=== PATIENT | female | born 2005 | race Caucasian/White ===

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

== ENCOUNTER 2023-01-23 21:35 | Emergency (ER) | payer MEDICAID, SELFPAY ==
[2023-01-23 21:35] VITALS: PULSE 84
[2023-01-23 21:36] VITALS: BP 131/89; PULSE 107; RESP 16; TEMP 36.6; O2SAT 98; BMI 23.8
--- NOTE | 2023-01-23 22:25 | RAD_ITS ---
INDICATION: INJURY EXAMINATION/TECHNIQUE: X-RAY - RIGHT XR Knee Complete 4 Views or More 4 VIEWS COMPARISON: None. FINDINGS: 4 views of the right knee were obtained. No acute fracture is identified. Possible trace joint effusion. RAD/Knee 4 or More Views IMPRESSION: No acute fracture identified. Electronically Signed: Jorgito Restrepo MD at 23:06 EDT ,
--- NOTE | 2023-01-23 22:25 | RAD_ITS ---
INDICATION: INJURY EXAMINATION/TECHNIQUE: X-RAY - LEFT XR Knee Complete 4 Views or More 4 VIEWS COMPARISON: None. FINDINGS: 4 views of the left knee were obtained. No acute fracture is identified. Possible trace joint effusion. RAD/Knee 4 or More Views IMPRESSION: No acute fracture identified. Electronically Signed: Jorgito Restrepo MD at 23:11 EDT ,
[2023-01-23 23:20] VITALS: PULSE 89; RESP 15; O2SAT 98
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
== END 2023-01-23 23:27 | disposition home or self-care (01) ==
PROVIDERS: Emergency Provider Emergency Medicine; PCP Nurse Practitioner Family; Visit Provider Emergency Medicine
DX: S80.02XA Contusion of left knee, initial encounter (principal); S80.01XA Contusion of right knee, initial encounter; V89.0XXA Person injured in unspecified motor-vehicle accident, nontraffic, initial encounter; Z79.3 Long term (current) use of hormonal contraceptives
CPT/HCPCS: 73564; 99282

== ENCOUNTER 2023-02-15 00:36 | Emergency (ER) | payer MEDICAID, SELFPAY ==
[2023-02-15 00:37] VITALS: BP 125/86; PULSE 95; RESP 16; TEMP 35.7; O2SAT 99; BMI 24.5
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
== END 2023-02-15 00:58 | disposition home or self-care (01) ==
PROVIDERS: Emergency Provider Emergency Medicine; PCP Nurse Practitioner Family; Visit Provider Emergency Medicine
DX: M25.561 Pain in right knee (principal); V89.2XXA Person injured in unspecified motor-vehicle accident, traffic, initial encounter
CPT/HCPCS: 99282

== ENCOUNTER 2023-03-27 23:54 | Emergency (ER) | payer MEDICAID, SELFPAY ==
[2023-03-27 23:55] VITALS: BP 112/82; PULSE 89; RESP 18; TEMP 36.9; O2SAT 98; BMI 24.4
--- NOTE | 2023-03-28 00:08 | EDS_ITS ---
HPI HPI - Female History of Present Illness Chief Complaint: Female C/O Narrative Narrative: Patient presents with pelvic pain. She is on Depo-Provera and had it about a month and a half or 2 ago, she started bleeding and having abdominal pain. She was seen at an outside ED had unremarkable urinalysis and blood work and was discharged. Her bleeding has now significantly decreased almost stopped but she still has cramping. She has no fevers or chills. She has no back pain. She is denying any upper abdominal pain. The pain is consistent with prior pelvic cramps. She is also complaining of pain in her left bicep, she recently started working out. Other trauma. PFSH PFSH Medical History Anxiety Depression Migraines Non-smoker Home Medications medroxyprogesterone 150 mg/mL intramuscular suspension (Depo-Provera) 150 mg IM [id number] #1 mL 10/18/22 [Rx Last Taken Unknown] naproxen 500 mg tablet (Naprosyn) 500 mg PO BID PRN pain #20 tabs 03/28/23 [Rx Last Taken Unknown] ondansetron 4 mg disintegrating tablet 4 mg PO Q8H PRN PRN Nausea #10 tabs 03/28/23 [Rx Last Taken Unknown] Allergy/AdvReac Type Severity Reaction Status Date / Time No Known Allergies Allergy Verified 03/27/23 23:55 Social History Smoking Status: Never smoker alcohol intake: never substance use type: does not use caffeine: Yes Type: coffee ROS ROS ED ROS Narrative Past medical history: Reviewed Medications: Reviewed Social history: Noncontributory Review of systems: General: No fever Eyes: No visual changes ENT: No upper airway congestion, normal voice Neck: No neck pain Cardiovascular: No chest pain Respiratory: No shortness of breath or cough Gastrointestinal: As in HPI Genitourinary: As in HPI Musculoskeletal: Left bicep tenderness. She has a negative x-ray at the outside facility Skin: No rash Neurological: No memory loss, confusion or any focal weakness EXAM Physical Exam Narrative Exam Narrative: Physical exam General: Patient does not appear ill although she does appear uncomfortable. Head: Normocephalic, Atraumatic Eyes: Conjunctiva not pale ENT: Moist mucous membranes Neck: Supple, Nontender, No lymphadenopathy Cardiovascular: Regular rate, Regular rhythm Respiratory: No distress, CTA bilaterally Abdomen: Soft, some suprapubic pain. Back: Nontender, Normal Inspection. Negative for: CVA tenderness Extremities: Left arm has tenderness over the bicep tendon distally. No bony tenderness with full range of motion of the elbow. Skin: Normal color, No rash Neurological: Alert, Normal Strength, Normal Sensation Const Vital Signs: 03/27/23 23:55 Temperature 98.4 F Temperature Source Temporal Pulse Rate 89 Respiratory Rate 18 Blood Pressure 112/82 H Blood Pressure Mean 92 Pulse Ox 98 Oxygen Delivery Method Room Air MDM MDM MDM Narrative Medical decision making narrative: Patient had a normal work-up at the outside facility. I am not worried about or infection therefore I will not redo any of the blood work. I do not believe she meets criteria for an emergent ultrasound. She has heavy menstrual cramps likely secondary from rebound from Depo-Provera. She otherwise appears well. She does have some pain in her bicep tendon but I do not believe new x-rays needed since she just had an x-ray outpatient. She will be treated with analgesics in the ED. I will give her nausea medications and anti- inflammatories for home otherwise she will be discharged in stable condition. I discussed with her friend in the room who also provided history. Discharge Plan Triage Chief Complaint: Female C/O ED Provider: Juan Antonio Gamino Dx/Rx/DC Orders Clinical Impression: Pelvic pain, Abnormal vaginal bleeding, PCOS (polycystic ovarian syndrome) Instructions: Understanding Uterine Bleeding, Communicating About Pain Prescriptions: New ondansetron 4 mg tablet,disintegrating 4 mg PO Q8H PRN PRN (Reason: Nausea) Qty: 10 0RF naproxen [Naprosyn] 500 mg tablet 500 mg PO BID PRN (Reason: pain) Qty: 20 0RF No Action medroxyprogesterone [Depo-Provera] 150 mg/mL suspension 150 mg IM [id number] Qty: 1 4RF Primary Care Provider: Rhonda Del Rio NP Referrals: Rhonda Del Rio NP, [employer] DEVELOPER-[employer] [Primary Care Provider] - 3-5 Days Disposition Disposition: Home, Self Care
[2023-03-28 00:16] VITALS: PULSE 78; RESP 15; O2SAT 99
[2023-03-28] MEDS: HYDROmorphone 1 MG/ML Syringe SC (00:30)
[2023-03-28] MEDS: Ondansetron ODT 4 MG Tablet PO (00:30)
[2023-03-28] MEDS: Ketorolac 30 MG/ML Syringe IM (00:30)
== END 2023-03-28 00:47 | disposition home or self-care (01) ==
PROVIDERS: Emergency Provider Emergency Medicine; PCP Nurse Practitioner Family; Visit Provider Emergency Medicine
DX: N93.9 Abnormal uterine and vaginal bleeding, unspecified (principal); E28.2 Polycystic ovarian syndrome; Z79.3 Long term (current) use of hormonal contraceptives; R10.2 Pelvic and perineal pain
CPT/HCPCS: 96372; 99283

== ENCOUNTER 2023-11-07 02:26 | Emergency (ER) | payer OTHER, SELFPAY ==
[2023-11-07 02:28] VITALS: BP 122/89; PULSE 59; RESP 16; TEMP 36; O2SAT 98; BMI 18.8
--- NOTE | 2023-11-07 02:59 | ED.VIS.GI ---
HPI HPI - GI History of Present Illness Chief Complaint: Nausea/Vomiting Informant: patient Nausea/Vomiting/Emesis GI Symptom: Positive for Nausea and Vomiting Onset: Hours (5) Quality: Positive for Nonbilious; Negative for Blood streaks, Coffee ground or Hematemesis Severity: Severe Diarrhea/Melena/Hematochezia GI Symptom: Negative for Diarrhea, Melena or Hematochezia Associated Symptoms Associated Symptoms: Negative for Dysuria, Frequency or Hematuria Narrative Narrative: Patient presents with nausea and vomiting that has gotten worse over the last 5 hours. Patient states it came on rather suddenly. Patient states she is vomiting up stomach contents. Patient denies any hematemesis or coffee-ground emesis. Patient denies any abdominal pain. Patient denies any diarrhea, melena, or hematochezia. Patient denies any dysuria, frequency, or hematuria. Patient admits to some subjective chills. Patient states she does have some pain into her back. Patient states she has some burning pain up into her chest. Patient states she also feels like her heart is racing at times. PFSH PFSH Medical History Anxiety Depression Migraines Non-smoker Home Medications medroxyprogesterone 150 mg/mL intramuscular suspension (Depo-Provera) 150 mg IM [id number] #1 mL 10/18/22 [Rx Last Taken Unknown] naproxen 500 mg tablet (Naprosyn) 500 mg PO BID PRN pain #20 tabs 03/28/23 [Rx Last Taken Unknown] cetirizine 10 mg capsule (All Day Allergy (cetirizine)) 10 mg PO DAILY PRN 03/31/23 [History Last Taken Unknown] fluoxetine 20 mg capsule 20 mg PO DAILY 06/29/23 [History Last Taken Unknown] etonogestrel 0.12 mg-ethinyl estradiol 0.015 mg/24 hr vaginal ring (NuvaRing) 1 vag ring vaginal Q4W #3 ea 09/29/23 [Rx Last Taken Unknown] promethazine 25 mg rectal suppository (Promethegan) 25 mg RECTAL Q6H PRN PRN Nausea ##6 11/07/23 [Rx Last Taken Unknown] Allergy/AdvReac Type Severity Reaction Status Date / Time No Known Allergies Allergy Verified 09/29/23 10:07 Surgical History no surgical history no surgical history Social History household members: friend(s) housing: apartment current occupational status: employed current occupation: [employer] in [employer] Smoking Status: Never smoker alcohol intake: never substance use type: does not use caffeine: Yes Type: coffee seatbelt use: always do you feel safe at home: Yes additional social history: Single ROS ROS ED Constitutional Constitutional ED: Reports chills and subjective; Denies fever(s) Eyes Eyes: Denies blurry vision or change in vision ENT ENT ED: Denies rhinorrhea or sore throat Cardiovascular Cardiovascular: Reports chest pain, palpitations and racing heartbeat Respiratory/Chest Respiratory/Chest: Reports cough and dyspnea Gastrointestinal Gastrointestinal: Reports nausea and vomiting; Denies abdominal pain, diarrhea or melena Genitourinary Genitourinary ED: Denies dysuria or hematuria Musculoskeletal Musculoskeletal: Reports back pain; Denies neck pain Integumentary Denies abscess or rash Neurologic Neurologic: Denies headache(s) or weakness Allergic/Immunologic Allergic/Immunologic ED: Denies mouth swelling or urticaria EXAM Physical Exam Const Vital Signs: 11/07/23 02:28 Temperature 96.8 F L Temperature Source Temporal Pulse Rate 59 L Respiratory Rate 16 Blood Pressure 122/89 H Blood Pressure Mean 100 Pulse Ox 98 Oxygen Delivery Method Room Air Positive well nourished and well developed General Appearance ED: well developed and NAD HEENT Reports moist mucous membranes Neck supple and no JVD Resp normal respiratory effort and clear to auscultation bilaterally Cardio regular rate and regular rhythm GI non-distended Palpation: soft and tender epigastric, LLQ, RLQ, LUQ, RUQ, periumbilical and suprapubic; Negative for guarding or rebound tenderness present Extremity full ROM Neuro CN's II-XII intact bilaterally, moves all extremities and no sensory deficits noted Sensorium / Orientation: alert Motor Exam: strength 5/5 throughout Psych mental status grossly normal MDM MDM MDM Narrative Medical decision making narrative: Differential diagnosis includes gastroenteritis, anxiety, viral illness, peptic ulcer disease, pancreatitis, , and dehydration. CBC will be obtained to assess for leukocytosis and anemia. Comprehensive metabolic profile will be obtained to assess for hepatic function, renal function, and electrolyte abnormality. Lipase will be obtained to assess for pancreatitis. Urinalysis will be obtained to assess for urinary tract infection. Serum hCG will be obtained to assess for . Lab Data Attestation: I reviewed the patient's lab results. Lab results narrative: CBC was reviewed. There is a slight leukocytosis of 12.6. The remainder is within normal limits. Comprehensive metabolic profile was reviewed and was within normal limits. Lipase was reviewed and was normal. Serum hCG was reviewed and was negative. Urinalysis was reviewed. There is no evidence of urinary tract infection or hematuria. Labs: Laboratory Results - last 24 hr 11/07/23 11/07/23 03:06 04:44 WBC 12.6 H RBC 4.77 Hgb 14.8 Hct 43.1 MCV 90.4 MCH 31.0 MCHC 34.3 RDW Std Deviation 39.5 RDW Coeff of Jelly 11.9 Plt Count 392 MPV 10.7 Immature Gran % (Auto) 0.300 Neut % (Auto) 82.6 H Lymph % (Auto) 14.1 L [place] % (Auto) 2.7 Eos % (Auto) 0.0 Baso % (Auto) 0.3 Absolute Neuts (auto) 10.4 H Absolute Lymphs (auto) 1.77 Nucleated RBC % 0 Sodium 138 Potassium 3.5 Chloride 107 Carbon Dioxide 19.0 L Anion Gap 12 BUN 6 L Creatinine 0.87 Estim Creat Clear Calc 92.28 Est GFR (MDRD) Af Amer 106 Est GFR (MDRD) Non-Af 88 BUN/Creatinine Ratio 6.9 L Glucose 115 H Calcium 9.7 Total Bilirubin 1.10 H AST 16 ALT 17 Alkaline Phosphatase 59 Total Protein 8.3 H Albumin 4.2 Globulin 4.1 Albumin/Globulin Ratio 1.0 Lipase 15 Serum , Qual NEGATIVE Urine Color Yellow Urine Clarity Clear Urine pH 6.0 Ur Specific [place] 1.025 Urine Protein 30 H Urine Glucose (UA) Normal Urine Ketones 50 H Urine Occult Blood 50 H Urine Nitrite Negative Urine Bilirubin Negative Urine Urobilinogen Normal Ur Leukocyte Esterase 25 H Urine RBC 0 SEEN Urine WBC 0-5 SEEN Ur Squamous Epith Cells 0-5 SEEN Urine Bacteria 1+ Urine Mucus 2+ Treatment and Re-Evaluation :: Patient was given IV fluids and Zofran. Patient was feeling better on reevaluation. Patient was advised of her findings. Patient was given a prescription for Zofran. Patient was instructed to start with small amounts of fluids more frequently and advance her diet as tolerated. Patient was instructed to follow-up with her primary care physician in 3 to 5 days for reevaluation. Patient understood and was agreeable with the plan. All questions were answered. Discharge Plan Triage Chief Complaint: Nausea/Vomiting ED Provider: Kaden Bermudez Dx/Rx/DC Orders Clinical Impression: Nausea and vomiting Instructions: ED Vomiting (Adult) Prescriptions: New promethazine [Promethegan] 25 mg suppository 25 mg RECTAL Q6H PRN PRN (Reason: Nausea) Qty: 6 0RF No Action medroxyprogesterone [Depo-Provera] 150 mg/mL suspension 150 mg IM [id number] Qty: 1 4RF All Day Allergy (cetirizine) 10 mg capsule 10 mg PO DAILY PRN fluoxetine 20 mg capsule 20 mg PO DAILY etonogestrel-ethinyl estradiol [NuvaRing] 0.12-0.015 mg/24 hr ring 1 vag ring vaginal Q4W Qty: 3 5RF Rx Instructions: continuous cycle leave in place for 3 weeks of a 3 week cycle naproxen [Naprosyn] 500 mg tablet 500 mg PO BID PRN (Reason: pain) Qty: 20 0RF Primary Care Provider: Rhonda Del Rio NP Referrals: Rhonda Del Rio NP, TECHNICIAN [employer]ATED [employer]QUIPMENT-[employer] [Primary Care Provider] - 3-5 Days Disposition Disposition: Home, Self Care
[2023-11-07 03:51] LABS: Absolute Lymphocyte Count 1.77 X10^3/uL (0.83-4.51); Absolute Neutrophil Count 10.4 X10^3/uL (2.0-7.7); Basophil# 0.04 X10^3/uL; Basophil% 0.3 % (0-1); Hematocrit 43.1 % (37-47); Hemoglobin 14.8 g/dL (12.0-15.0); Lymphocyte # 1.77 X10^3/ul (0.83-4.51); Lymphocyte % 14.1 % (19-41); Mean Corp Hgb Conc 34.3 g/dL (32-36); Mean Corpuscular Volume 90.4 fL (81-99); Mean Platelet Vol. 10.7 fl (6.2-12.0); Monocyte# 0.34 X10^3/uL; Monocyte% 2.7 % (0-10); NRBC Flagged by Analyzer 0 % (0-5); Neutrophil % 82.6 % (47-70); Platelet Count 392 K/mm3 (150-450); RBC Distribution Width CV 11.9 % (11.6-14.6); RBC Distribution Width SD 39.5 fl (35.1-43.9); Red Blood Count 4.77 M/mm3 (4.2-5.4); White Blood Count 12.6 K/mm3 (4.4-11.0)
[2023-11-07] MEDS: 0.9% Normal Saline (1000mL) 1,000 ML 1000 ML IV (03:52)
[2023-11-07] MEDS: Ondansetron 4 MG/2 ML Vial IV (03:53)
[2023-11-07 04:05] LABS: Internal QC Validated? YES +Cl - CLEAR BKGD; Pregnancy, Serum, hCG Quali. NEGATIVE Negative
[2023-11-07 04:12] LABS: AST(SGOT) 16 U/L (15-37); Alanine Aminotransfer ALT/SGPT 17 U/L (13-56); Albumin, Serum 4.2 g/dL (3.2-5.0); Alkaline Phosphatase 59 U/L (45-117); Anion Gap 12 (5-15); BUN 6 mg/dL (7-18); BUN/Creat Ratio 6.9 RATIO (10-20); Calcium,Total 9.7 mg/dL (8.5-10.1); Chloride 107 mmol/L (98-107); Creatinine, Serum 0.87 mg/dL (0.55-1.02); EST Glomerular Filtration Rate 88 mL/min (>60); Est Glom Filt Rate - Afr Amer 106 mL/min (>60); Estimated Creatinine Clearance 92.28 ml/min; Globulin 4.1 g/dL (2.2-4.2); Glucose 115 mg/dL (74-106); Lipase 15 U/L (13-75); Potassium 3.5 mmol/L (3.5-5.1); Protein, Total 8.3 g/dL (6.4-8.2); Sodium Level 138 mmol/L (136-145)
[2023-11-07 04:50] LABS: Red Blood Cells-Urine 0 SEEN /hpf (0-5)
[2023-11-07 04:51] LABS: Color, Urine Yellow (Yellow); Glucose, Dipstick Normal (Normal); Ketone-Dipstick 50 mg/dl (Negative); Leukocyte Esterase-Dipstick 25 /ul (Negative); Nitrite-Dipstick Negative (Negative); Occult Blood-Urine 50 /ul (Negative); Protein-Dipstick 30 mg/dl (Negative); Specific Gravity, Urine 1.025 (1.002-1.030); Urine Bilirubin Dipstick Negative (Negative); Urine Clarity Clear (Clear); Urine Urobilinogen Normal (Normal)
[2023-11-07 05:32] LABS: Bacteria 1+ /hpf (None Seen); Mucous, Urine 2+ /hpf (<or=2+); Squamous Epithelial Cells - UA 0-5 SEEN /hpf (5-10); White Blood Cells 0-5 SEEN /hpf (0-5)
[2023-11-07] MEDS: proMETHazine 25 MG/ML Syringe 6.25 MG IM (05:57)
[2023-11-07 07:24] VITALS: BP 127/68; PULSE 77; RESP 18; TEMP 36.6; O2SAT 98
== END 2023-11-07 07:25 | disposition home or self-care (01) ==
PROVIDERS: Emergency Provider Emergency Medicine; PCP Nurse Practitioner Family; Visit Provider Emergency Medicine
DX: R11.2 Nausea with vomiting, unspecified (principal); F32.A Depression, unspecified; Z79.899 Other long term (current) drug therapy
CPT/HCPCS: 80053; 81001; 83690; 84703; 85025; 96361; 96372; 96374; 99283; J2405

== ENCOUNTER 2024-10-04 12:56 | Emergency (ER) | payer OTHER, SELFPAY ==
[2024-10-04 12:57] VITALS: BP 129/90; PULSE 73; RESP 15; TEMP 36; O2SAT 100; BMI 17.4
--- NOTE | 2024-10-04 14:09 | EDS_ITS ---
HPI HPI - GI History of Present Illness Chief Complaint: Nausea/Vomiting Informant: patient and friend Narrative Narrative: 18-year-old female started becoming sick last night a little over 12 hours ago, started with periumbilical abdominal ache, shortly thereafter followed by nausea and vomiting, and then that is continued this morning along with 4 episodes of watery nonbloody diarrhea. No fevers or chills. Recent sick contacts with similar. No history of prior abdominal surgeries. No problems urinating. Cramping and aching periumbilical improves for a very short period of time after she has vomiting or diarrhea. She states now that she has been having all of this vomiting and diarrhea her chest feels sore and hurts to take of breath, but it is diffuse. PFSH PFSH Medical History Depression Anxiety Migraines Non-smoker Home Medications ?Medication ?Instructions ?Recorded ?Last Taken ?Type medroxyprogesterone 150 mg/mL 150 mg IM [id number] #1 mL 10/18/22 Unknown Rx intramuscular suspension (Depo-Provera) naproxen 500 mg tablet (Naprosyn) 500 mg PO BID PRN pa in #20 tabs 03/28/23 Unknown Rx cetirizine 10 mg capsule (All Day 10 mg PO DAILY PRN 0 03/31/23 Unknown History Allergy (cetirizine)) fluoxetine 20 mg capsule 20 mg PO DAILY 06/29/23 Unkn own History etonogestrel 0.12 mg-ethinyl 1 vag ring vaginal Q4W #3 ea 09/29/23 Unknown Rx estradiol 0.015 mg/24 hr vaginal ring (NuvaRing) promethazine 25 mg rectal 25 mg RECTAL Q6H PRN PRN Keshawn sea ##6 11/07/23 Unknown Rx suppository (Promethegan) dicyclomine 10 mg capsule 20 mg (2 x 10 mg) PO Q6H PRN 10/04/24 Unknown Rx Abdominal Discomfort #20 CAPSULES ondansetron 8 mg disintegrating 8 mg PO Q8H PRN nausea and 10/04/24 Unknown Rx tablet vomiting #15 tabs Allergy/AdvReac Type Severity Reaction Status Date / Time No Known Allergies Allergy Verified 10/04/24 12:59 Social History household members: friend(s) housing: apartment current occupational status: employed current occupation: [employer] Smoking Status: Never smoker alcohol intake: never substance use type: does not use caffeine: Yes Type: coffee seatbelt use: always do you feel safe at home: Yes additional social history: Single ROS ROS ED Constitutional Constitutional ED: Reports malaise; Denies chills or fever(s) Eyes Eyes: Denies change in vision or diplopia ENT ENT ED: Denies rhinorrhea or sore throat Cardiovascular Cardiovascular: Reports chest pain; Denies palpitations Respiratory/Chest Respiratory/Chest: Denies cough or dyspnea Gastrointestinal Gastrointestinal: Reports abdominal pain, diarrhea, nausea and vomiting; Denies hematemesis, hematochezia or melena Genitourinary Genitourinary ED: Denies dysuria or hematuria Musculoskeletal Musculoskeletal: Denies back pain or neck pain Integumentary Denies abscess or rash Neurologic Neurologic: Denies headache(s), paresthesias or weakness EXAM Physical Exam Const Vital Signs: 10/04/24 12:57 10/04/24 14:56 10/04/24 16:00 Temperature 96.8 F L Temperature Source Temporal Pulse Rate 73 88 70 Respiratory Rate 15 14 14 Blood Pressure 129/90 H 120/74 118/70 Blood Pressure Mean 103 89 86 Pulse Ox 100 100 100 Oxygen Delivery Method Room Air Positive well nourished and well developed General Appearance ED: well developed and NAD HEENT Reports moist mucous membranes normocephalic and atraumatic Eyes PERRL and EOMs intact bilaterally Neck full ROM and supple Resp normal respiratory effort and clear to auscultation bilaterally Cardio regular rate, regular rhythm and no murmurs GI non-distended GI Narrative: Diffuse abdominal tenderness without guarding, rebound, distention Auscultation: normoactive bowel sounds and hyperactive bowel sounds Palpation: soft Back/Spine no CVA tenderness General Back: other FROM Extremity normal to inspection General Extremety ED: Negative for edema, pulses abnormal or tenderness General Extremity: Negative for edema or pulses abnormal Neuro oriented x3, CN's II-XII intact bilaterally and no sensory deficits noted Sensorium / Orientation: awake and alert Motor Exam: strength 5/5 throughout Psych Mood & Affect: anxious Skin no rashes or lesions noted and no wounds MDM MDM MDM Narrative Medical decision making narrative: Patient was treated with IV fluids, Zofran, Bentyl, Toradol. On reexamination she is feeling a lot better. I reexamined her. She still some mild tenderness in the right lower quadrant and mild tenderness in the epigastrium but she states is improved and she basically was barely having any discomfort until I examined her. Her labs show a mild leukocytosis with a leftward shift, this is nonspecific. She has a mild elevation of her total bilirubin which could be due to GI illness because the rest of her liver enzymes are negative and her lipase is normal, is negative ruling out ectopic, urine does not show anything concerning for infection. She does appear little prerenal, but not acidotic. We discussed the possibility of appendicitis, although would be atypical and more likely I think would be mesenteric adenitis from what is probably a viral infection. We discussed the pros and cons of getting a CT, and the nature of appendicitis, she decided to check with her insurance company and it is not covered and it would be about $1000 [id number] and so for these reasons primarily that and because she is feeling better, she declines a CT. She understands reasons to come back, especially if her pain is persistent and continues to worsen in the right lower quadrant in which case we would recommend CT. She is tolerating oral fluids, will discharge with Zofran prescription Lab Data Attestation: I reviewed the patient's lab results. Labs: Laboratory Results - last 24 hr 10/04/24 10/04/24 14:08 14:25 WBC 12.6 H RBC 4.31 Hgb 13.9 Hct 40.0 MCV 92.8 MCH 32.3 H MCHC 34.8 RDW Std Deviation 42.1 RDW Coeff of Jelly 12.3 Plt Count 377 MPV 9.4 Immature Gran % (Auto) 0.300 Neut % (Auto) 95.5 H Lymph % (Auto) 2.8 L Sargent % (Auto) 1.2 Eos % (Auto) 0.0 Baso % (Auto) 0.2 Absolute Neuts (auto) 12.0 H Absolute Lymphs (auto) 0.35 L Nucleated RBC % 0 Sodium 140 Potassium 3.7 Chloride 108 H Carbon Dioxide 25.0 Anion Gap 8 BUN 20 H Creatinine 0.77 Estim Creat Clear Calc 95.97 Est GFR (MDRD) Af Amer 122 Est GFR (MDRD) Non-Af 101 BUN/Creatinine Ratio 25.9 H Glucose 149 H Calcium 9.1 Total Bilirubin 1.50 H AST 15 ALT 16 Alkaline Phosphatase 46 Total Protein 7.3 Albumin 3.5 Globulin 3.8 Albumin/Globulin Ratio 0.9 Lipase 14 Serum , Qual NEGATIVE Urine Color Marleny Urine Clarity Sl. Cloudy Urine pH 7.0 Ur Specific Henderson 1.005 Urine Protein 100 H Urine Glucose (UA) Normal Urine Ketones 50 H Urine Occult Blood 150 H Urine Nitrite Negative Urine Bilirubin Negative Urine Urobilinogen 1 H Ur Leukocyte Esterase 25 H Urine RBC 5-10 SEEN Urine WBC 5-10 SEEN Ur Squamous Epith Cells 0-5 SEEN Urine Bacteria 2+ Urine Mucus 0 SEEN Discharge Plan Triage Chief Complaint: Nausea/Vomiting ED Provider: Álvaro Licona Dx/Rx/DC Orders Clinical Impression: Nausea, vomiting and diarrhea, Abdominal pain, RLQ, Muscle strain of chest wall, Mild dehydration Instructions: Viral Gastroenteritis, Abdominal Pain Prescriptions: New ondansetron 8 mg tablet,disintegrating 8 mg PO Q8H PRN (Reason: nausea and vomiting) Qty: 15 0RF dicyclomine 10 mg capsule 20 mg PO Q6H PRN (Reason: Abdominal Discomfort) Qty: 20 0RF No Action medroxyprogesterone [Depo-Provera] 150 mg/mL suspension 150 mg IM [id number] Qty: 1 4RF All Day Allergy (cetirizine) 10 mg capsule 10 mg PO DAILY PRN fluoxetine 20 mg capsule 20 mg PO DAILY etonogestrel-ethinyl estradiol [NuvaRing] 0.12-0.015 mg/24 hr ring 1 vag ring vaginal Q4W Qty: 3 5RF Rx Instructions: continuous cycle leave in place for 3 weeks of a 3 week cycle naproxen [Naprosyn] 500 mg tablet 500 mg PO BID PRN (Reason: pain) Qty: 20 0RF promethazine [Promethegan] 25 mg suppository 25 mg RECTAL Q6H PRN PRN (Reason: Nausea) Qty: 6 0RF Primary Care Provider: Rhonda Del Rio NP Referrals: Rhonda Del Rio NP, [employer] [Primary Care Provider] - 1-2 Days if not improving Activity Restrictions/Additional Instructions: For consistently worsening right lower abdominal pain, a CT in the ER will be required to see if you have appendicitis. Print Language: Comoran Disposition Disposition: Home, Self Care
[2024-10-04] MEDS: 0.9% Normal Saline (1000mL) 1,000 ML 999 ML IV (14:19)
[2024-10-04] MEDS: Dicyclomine 20 MG/2 ML Vial IM (14:19)
[2024-10-04] MEDS: Ketorolac 15 MG/ML Vial IV (14:20)
[2024-10-04] MEDS: Ondansetron 4 MG/2 ML Vial IV (14:20)
[2024-10-04 14:35] LABS: Absolute Lymphocyte Count 0.35 X10^3/uL (0.83-4.51); Basophil# 0.02 X10^3/uL; Basophil% 0.2 % (0-1); Hemoglobin 13.9 g/dL (12.0-15.0); Lymphocyte # 0.35 X10^3/ul (0.83-4.51); Lymphocyte % 2.8 % (19-41); Mean Corp Hgb Conc 34.8 g/dL (32-36); Mean Corpuscular Hgb 32.3 pg (27.0-32.0); Mean Corpuscular Volume 92.8 fL (81-99); Mean Platelet Vol. 9.4 fl (6.2-12.0); Monocyte# 0.15 X10^3/uL; Monocyte% 1.2 % (0-10); NRBC Flagged by Analyzer 0 % (0-5); Neutrophil # 11.99 X10^3/uL (2.7-7.7); Neutrophil % 95.5 % (47-70); POSITIVE DIFFERENTIAL YES; Platelet Count 377 K/mm3 (150-450); RBC Distribution Width CV 12.3 % (11.6-14.6); RBC Distribution Width SD 42.1 fl (35.1-43.9); Red Blood Count 4.31 M/mm3 (4.2-5.4); White Blood Count 12.6 K/mm3 (4.4-11.0)
[2024-10-04 14:51] LABS: Internal QC Validated? YES +Cl - CLEAR BKGD; Pregnancy, Serum, hCG Quali. NEGATIVE Negative; Record Kit Lot#, Serum Preg. 855059
[2024-10-04 14:56] VITALS: BP 120/74; PULSE 88; RESP 14; O2SAT 100
[2024-10-04 15:00] LABS: ALB/GLOB Ratio 0.9 RATIO (0.9-2.4); AST(SGOT) 15 U/L (15-37); Alanine Aminotransfer ALT/SGPT 16 U/L (13-56); Albumin, Serum 3.5 g/dL (3.2-5.0); Alkaline Phosphatase 46 U/L (45-117); Anion Gap 8 (5-15); BUN 20 mg/dL (7-18); BUN/Creat Ratio 25.9 RATIO (10-20); Calcium,Total 9.1 mg/dL (8.5-10.1); Chloride 108 mmol/L (98-107); Creatinine, Serum 0.77 mg/dL (0.55-1.02); EST Glomerular Filtration Rate 101 mL/min (>60); Est Glom Filt Rate - Afr Amer 122 mL/min (>60); Estimated Creatinine Clearance 95.97 ml/min; Globulin 3.8 g/dL (2.2-4.2); Glucose 149 mg/dL (74-106); Lipase 14 U/L (13-75); Potassium 3.7 mmol/L (3.5-5.1); Protein, Total 7.3 g/dL (6.4-8.2); Sodium Level 140 mmol/L (136-145)
[2024-10-04 15:23] LABS: Color, Urine Amber (Yellow); Glucose, Dipstick Normal (Normal); Ketone-Dipstick 50 mg/dl (Negative); Leukocyte Esterase-Dipstick 25 /ul (Negative); Mucous, Urine 0 SEEN /hpf (<or=2+); Nitrite-Dipstick Negative (Negative); Occult Blood-Urine 150 /ul (Negative); Protein-Dipstick 100 mg/dl (Negative); Specific Gravity, Urine 1.005 (1.002-1.030); Urine Bilirubin Dipstick Negative (Negative); Urine Clarity Sl. Cloudy (Clear); Urine Urobilinogen 1 mg/dl (Normal)
[2024-10-04 15:30] LABS: Red Blood Cells-Urine 5-10 SEEN /hpf (0-5); Squamous Epithelial Cells - UA 0-5 SEEN /hpf (5-10); White Blood Cells 5-10 SEEN /hpf (0-5)
[2024-10-04 15:31] LABS: Bacteria 2+ /hpf (None Seen)
[2024-10-04 16:00] VITALS: BP 118/70; PULSE 70; RESP 14; O2SAT 100
[2024-10-04] MEDS: Metoclopramide 10 MG/2 ML Vial 5 MG IV (17:27)
[2024-10-04 17:41] VITALS: BP 128/76; PULSE 82; RESP 15; TEMP 36.4; O2SAT 99
== END 2024-10-04 17:42 | disposition home or self-care (01) ==
PROVIDERS: Emergency Provider Emergency Medicine; PCP Nurse Practitioner Family; Visit Provider Emergency Medicine
DX: R11.2 Nausea with vomiting, unspecified (principal); R19.7 Diarrhea, unspecified; R10.31 Right lower quadrant pain; E86.0 Dehydration; F32.A Depression, unspecified; Z79.899 Other long term (current) drug therapy; S29.019A Strain of muscle and tendon of unspecified wall of thorax, initial encounter; X58.XXXA Exposure to other specified factors, initial encounter
CPT/HCPCS: 80053; 81001; 83690; 84703; 85025; 96361; 96372; 96374; 96375; 99283; A4216; J2405

== ENCOUNTER → 2024-11-21 | Outpatient (CLI) | payer OTHER, SELFPAY ==
[2024-11-23 20:08] LABS: Chlamydia By Nucleic Acid AMP Negative (Negative); Gonococcus By Nucleic Acid AMP Negative (Negative)
== END | disposition home or self-care (01) ==
LOC: LABSPEC 16:18
PROVIDERS: PCP Nurse Practitioner Family; Referring Provider Advanced Practice Midwife; Visit Provider Advanced Practice Midwife
DX: Z12.4 Encounter for screening for malignant neoplasm of cervix (principal); Z11.3 Encounter for screening for infections with a predominantly sexual mode of transmission
CPT/HCPCS: 87491; 87591; 88175; G0145

== ENCOUNTER → 2025-06-20 | Outpatient (CLI) | payer OTHER, SELFPAY | END | disposition home or self-care (01) | LOC: LAB 14:59 | PROVIDERS: PCP Nurse Practitioner Family; Referring Provider Advanced Practice Midwife; Visit Provider Advanced Practice Midwife | DX: E28.2 Polycystic ovarian syndrome (principal) | CPT/HCPCS: 36415; 84439; 84443 ==